=== PATIENT | female | born 2000 | race Caucasian/White ===

== ENCOUNTER 2019-09-01 01:33 | Emergency (ER) | payer MEDICAID ==
[~2019-09-01] VITALS: Ht 157.5 cm; Wt 63.6 kg
[~2019-09-01 01:33] MED LIST: LORA-1000 PO; PARO20TA24 PO
[2019-09-01] MEDS ORDERED: BACITRACIN 0.9 GM PACKET OINTMENT TP ONE (02:45)
[2019-09-01] MEDS ORDERED: IBUPROFEN 600 MG TABLET PO ONE (02:45)
[2019-09-01] MEDS ORDERED: ACETAMINOPHEN 500 MG TABLET PO ONE (02:45)
[2019-09-01 03:33] VITALS: BP 126/77
== END 2019-09-01 04:40 | disposition home or self-care (01) ==
LOC: EMS 01:34
DX: S60.221A Contusion of right hand, initial encounter (principal); S00.93XA Contusion of unspecified part of head, initial encounter; S80.211A Abrasion, right knee, initial encounter; S40.212A Abrasion of left shoulder, initial encounter; F41.9 Anxiety disorder, unspecified; F32.9 Major depressive disorder, single episode, unspecified; Z79.899 Other long term (current) drug therapy; Z88.1 Allergy status to other antibiotic agents; Y04.8XXA Assault by other bodily force, initial encounter; Y93.89 Activity, other specified; Y92.89 Other specified places as the place of occurrence of the external cause; Y99.8 Other external cause status

== ENCOUNTER 2025-06-04 14:32 | Emergency (ER) | payer MEDICAID ==
[~2025-06-04] VITALS: Ht 157.5 cm; Wt 75.9 kg
[2025-06-04 14:34] VITALS: BP 130/74; PULSE 74; RESP 18; TEMP 98.3; O2SAT 99
[2025-06-04] MEDS: BACITRACIN 0.9 GM PACKET OINTMENT TP ONE (15:22)
[2025-06-04] MEDS: PERTUSS(ACELL),DIPH,TET/PF 0.5 ML SYRINGE [ADULT] IM. ONE (15:29)
== END 2025-06-04 15:47 | disposition home or self-care (01) ==
LOC: EMS 14:32
DX: S61.412A Laceration without foreign body of left hand, initial encounter (principal); F41.9 Anxiety disorder, unspecified; F32.A Depression, unspecified; F12.90 Cannabis use, unspecified, uncomplicated; Z88.1 Allergy status to other antibiotic agents; W19.XXXA Unspecified fall, initial encounter; Y93.89 Activity, other specified; Y92.89 Other specified places as the place of occurrence of the external cause; Y99.8 Other external cause status
CPT/HCPCS: 12001; 90471; 90715; 99283